=== PATIENT | male | born 1980 | race Caucasian/White ===

== ENCOUNTER 2021-02-12 10:40 | Inpatient (IN) | payer OTHER ==
[2021-02-12 11:24] VITALS: BMI 27.8
[2021-02-12] MEDS ORDERED: MAGNESIUM HYDROX 2400MG/30ML ORAL SUSPENSION 30 ML CUP PO PRN (16:03)
[2021-02-12] MEDS ORDERED: MAGNESIUM CITRATE 300 ML BOTTLE PO PRN (16:03)
[2021-02-12] MEDS ORDERED: BISMUTH SUBSALICYLATE 524 MG/30 ML PO PRN (16:03)
[2021-02-12] MEDS ORDERED: MAG HYDROX/AL HYDROX/SIMETH 30 ML UNIT-DOSE CUP PO PRN (16:03)
[2021-02-12] MEDS ORDERED: METHOCARBAMOL 500 MG TABLET PO PRN (16:03)
[2021-02-12] MEDS ORDERED: ACETAMINOPHEN 325 MG TABLET (FP) PO PRN (16:03)
[2021-02-12] MEDS ORDERED: ONDANSETRON *ODT* 4 MG TABLET SL PRN (16:03)
[2021-02-12] MEDS ORDERED: MENTHOL/PHENOL 1 EACH UD MM PRN (16:03)
[2021-02-12] MEDS ORDERED: IBUPROFEN 400 MG TABLET (FP) PO PRN (16:03)
[2021-02-12] MEDS: diazePAM 5 MG TABLET PO SCH ×2 (17:57→23:06)
[2021-02-12] MEDS: NICOTINE POLACRILEX 2 MG GUM BUC PRN (17:57)
[2021-02-12] MEDS: hydrOXYzine PAMOATE 25 MG CAPSULE (FP) PO SCH ×2 (17:57→23:12)
[2021-02-12] MEDS: NICOTINE 21 MG/24 HOURS TOPICAL PATCH TD SCH (17:57)
[2021-02-12] MEDS: diazePAM 5 MG TABLET PO PRN (19:10)
[2021-02-12] MEDS: MELATONIN 5 MG TABLETS PO SCH (23:06)
[2021-02-12] MEDS: THIAMINE HCL 100 MG TABLET (FP) PO SCH (23:12)
[2021-02-13] MEDS: hydrOXYzine PAMOATE 25 MG CAPSULE (FP) PO SCH (07:00)
[2021-02-13] MEDS: NICOTINE POLACRILEX 2 MG GUM BUC PRN ×4 (07:00→23:22)
[2021-02-13] MEDS: diazePAM 5 MG TABLET PO SCH ×4 (07:02→23:24)
[2021-02-13] MEDS ORDERED: hydrOXYzine PAMOATE 25 MG CAPSULE (FP) PO PRN (08:43)
[2021-02-13] MEDS ORDERED: NICOTINE 21 MG/24 HOURS TOPICAL PATCH TD SCH (10:00)
[2021-02-13] MEDS: NICOTINE 21 MG/24 HOURS TOPICAL PATCH TD SCH (10:01)
[2021-02-13] MEDS: methaDONE HCL 40 MG DISPERSABLE TABLET PO SCH (10:01)
[2021-02-13] MEDS: PRENATAL VITAMINS W/ FOLIC ACID TABLET (FP) PO SCH (10:02)
[2021-02-13 11:13] LABS: HEMATOCRIT 39.7 % (35.4-49); HEMOGLOBIN 13.8 GM/dL (11.7-16.9); MCH 33.8 pg (25.7-33.7); MCHC 34.8 g/dl (32.0-35.9); PLATELET COUNT 222 10^3/uL (134-434); RBC 4.09 M/mm3 (4.00-5.60); RDW 13.6 % (11.9-15.9); WHITE BLOOD COUNT 7.9 K/mm3 (4.0-10.0)
[2021-02-13 11:17] LABS: ALBUMIN 3.5 g/dl (3.4-5.0); BLOOD UREA NITROGEN 8.2 mg/dL (7-18); CALCIUM 8.7 mg/dL (8.5-10.1)
[2021-02-13 11:21] LABS: CREATININE 0.8 mg/dL (0.55-1.3)
[2021-02-13 11:22] LABS: BILIRUBIN,TOTAL 0.8 mg/dL (0.2-1); TOT PROT 6.3 g/dl (6.4-8.2)
[2021-02-13] MEDS ORDERED: POTASSIUM CHLORIDE TABS 20 MEQ TABLET.ER (FP) PO ONE (12:06)
[2021-02-13] MEDS: diazePAM 5 MG TABLET PO PRN ×2 (12:31→19:39)
[2021-02-13] MEDS: THIAMINE HCL 100 MG TABLET (FP) PO SCH (23:23)
[2021-02-13] MEDS: MELATONIN 5 MG TABLETS PO SCH (23:28)
[2021-02-14] MEDS: diazePAM 5 MG TABLET PO PRN ×4 (01:54→18:02)
[2021-02-14] MEDS: diazePAM 5 MG TABLET PO SCH ×3 (05:20→23:23)
[2021-02-14] MEDS: methaDONE HCL 40 MG DISPERSABLE TABLET PO SCH (05:20)
[2021-02-14] MEDS: ACETAMINOPHEN 325 MG TABLET (FP) PO PRN ×2 (06:06→17:58)
[2021-02-14] MEDS: PRENATAL VITAMINS W/ FOLIC ACID TABLET (FP) PO SCH (10:16)
[2021-02-14] MEDS: NICOTINE 21 MG/24 HOURS TOPICAL PATCH TD SCH (10:16)
[2021-02-14] MEDS: NICOTINE POLACRILEX 2 MG GUM BUC PRN ×2 (10:17→14:25)
[2021-02-14] MEDS: THIAMINE HCL 100 MG TABLET (FP) PO SCH (21:44)
[2021-02-14] MEDS: MELATONIN 5 MG TABLETS PO SCH (21:45)
[2021-02-15] MEDS: diazePAM 5 MG TABLET PO PRN ×3 (00:46→15:01)
[2021-02-15] MEDS: NICOTINE POLACRILEX 2 MG GUM BUC PRN ×2 (00:53→10:59)
[2021-02-15] MEDS: methaDONE HCL 40 MG DISPERSABLE TABLET PO SCH (05:47)
[2021-02-15] MEDS ORDERED: diazePAM 5 MG TABLET PO SCH (06:00)
[2021-02-15] MEDS: PRENATAL VITAMINS W/ FOLIC ACID TABLET (FP) PO SCH (10:25)
[2021-02-15] MEDS: NICOTINE 21 MG/24 HOURS TOPICAL PATCH TD SCH (10:25)
[2021-02-15 18:00] VITALS: BP 119/88; PULSE 134; TEMP 96.9
[2021-02-16] MEDS ORDERED: diazePAM 5 MG TABLET PO ONE (06:00)
== END 2021-02-15 17:02 | disposition home or self-care (01) | DRG 773 ==
LOC: YASAS 10:40 → Y3N 16:58
PROVIDERS: ADMIT Allergy & Immunology; ATTEND Allergy & Immunology
PROC: HZ2ZZZZ Detoxification Services for Substance Abuse Treatment (ICD-10-PCS; principal; 2021-02-12)
DX: F10.230 Alcohol dependence with withdrawal, uncomplicated (principal); F11.20 Opioid dependence, uncomplicated; F13.20 Sedative, hypnotic or anxiolytic dependence, uncomplicated; F14.20 Cocaine dependence, uncomplicated; F17.210 Nicotine dependence, cigarettes, uncomplicated; Z87.828 Personal history of other (healed) physical injury and trauma; Z91.013 Allergy to seafood; Z56.0 Unemployment, unspecified
CPT/HCPCS: 36415; 80053; 84132; 85027; 86780; C9803; U0003; U0005

== ENCOUNTER 2021-05-05 17:08 | Inpatient (IN) | payer OTHER ==
[2021-05-05] MEDS ORDERED: MAGNESIUM CITRATE 300 ML BOTTLE PO PRN (21:12)
[2021-05-05] MEDS ORDERED: ACETAMINOPHEN 325 MG TABLET (FP) PO PRN ×2 (21:12)
[2021-05-05] MEDS ORDERED: ONDANSETRON *ODT* 4 MG TABLET SL PRN (21:12)
[2021-05-05] MEDS ORDERED: IBUPROFEN 400 MG TABLET (FP) PO PRN (21:12)
[2021-05-05] MEDS ORDERED: MAGNESIUM HYDROX 2400MG/30ML ORAL SUSPENSION 30 ML CUP PO PRN (21:12)
[2021-05-05] MEDS ORDERED: MAG HYDROX/AL HYDROX/SIMETH 30 ML UNIT-DOSE CUP PO PRN (21:12)
[2021-05-05] MEDS ORDERED: BISMUTH SUBSALICYLATE 524 MG/30 ML PO PRN (21:12)
[2021-05-05] MEDS ORDERED: MENTHOL/PHENOL 1 EACH UD MM PRN (21:12)
[2021-05-05 22:39] VITALS: BMI 27.1
[2021-05-05] MEDS ORDERED: diazePAM 5 MG TABLET ONE (23:01)
[2021-05-05] MEDS ORDERED: METHOCARBAMOL 500 MG TABLET ONE (23:03)
[2021-05-05] MEDS: diazePAM 5 MG TABLET PO SCH (23:04)
[2021-05-05] MEDS: THIAMINE HCL 100 MG TABLET (FP) PO SCH (23:04)
[2021-05-05] MEDS: MELATONIN 5 MG TABLETS PO SCH (23:04)
[2021-05-05] MEDS: METHOCARBAMOL 500 MG TABLET PO PRN (23:06)
[2021-05-06] MEDS: diazePAM 5 MG TABLET PO PRN ×3 (01:04→19:31)
[2021-05-06] MEDS: diazePAM 5 MG TABLET PO SCH ×4 (05:35→22:12)
[2021-05-06] MEDS ORDERED: CLINDAMYCIN HCL 300 MG CAPSULE PO SCH (10:00)
[2021-05-06] MEDS ORDERED: BACITRACIN/POLYMYXIN B SULFATE 15 GM TUBE TP SCH (10:00)
[2021-05-06] MEDS: NICOTINE 21 MG/24 HOURS TOPICAL PATCH TD SCH (10:34)
[2021-05-06] MEDS: METHOCARBAMOL 500 MG TABLET PO PRN (10:34)
[2021-05-06] MEDS: PRENATAL VITAMINS W/ FOLIC ACID TABLET (FP) PO SCH (10:34)
[2021-05-06] MEDS: NICOTINE POLACRILEX 2 MG GUM BUC PRN ×3 (10:37→22:12)
[2021-05-06] MEDS ORDERED: methaDONE HCL 10 MG TABLET PO SCH (12:00)
[2021-05-06 12:15] LABS: HEMATOCRIT 37.2 % (35.4-49); HEMOGLOBIN 12.8 GM/dL (11.7-16.9); MCH 32.5 pg (25.7-33.7); MCHC 34.4 g/dl (32.0-35.9); MEAN CELL VOLUME 94.4 fl (80-96); PLATELET COUNT 345 10^3/uL (134-434); RBC 3.94 M/mm3 (4.00-5.60); WHITE BLOOD COUNT 7.2 K/mm3 (4.0-10.0)
[2021-05-06] MEDS ORDERED: methaDONE 40 MG, methaDONE 10 MG PO ONE (12:15)
[2021-05-06] MEDS ORDERED: methaDONE HCL 10 MG TABLET ONE (12:19)
[2021-05-06] MEDS ORDERED: methaDONE HCL 40 MG DISPERSABLE TABLET ONE (12:20)
[2021-05-06 12:21] LABS: CALCIUM 8.3 mg/dL (8.5-10.1)
[2021-05-06 12:22] LABS: BLOOD UREA NITROGEN 12.5 mg/dL (7-18)
[2021-05-06 12:25] LABS: BILIRUBIN,TOTAL 0.2 mg/dL (0.2-1); CREATININE 0.9 mg/dL (0.55-1.3)
[2021-05-06 12:26] LABS: TOT PROT 6.2 g/dl (6.4-8.2)
[2021-05-06] MEDS: CLINDAMYCIN HCL 150 MG CAPSULE (FP) PO SCH ×2 (13:35→22:11)
[2021-05-06] MEDS: BACITRACIN/POLYMYXIN B SULFATE 15 GM TUBE TP SCH (13:59)
[2021-05-06] MEDS: THIAMINE HCL 100 MG TABLET (FP) PO SCH (22:11)
[2021-05-06] MEDS: MELATONIN 5 MG TABLETS PO SCH (22:12)
[2021-05-07] MEDS: BACITRACIN/POLYMYXIN B SULFATE 15 GM TUBE TP SCH ×3 (00:12→23:12)
[2021-05-07] MEDS ORDERED: methaDONE HCL 10 MG TABLET ONE (04:37)
[2021-05-07] MEDS ORDERED: methaDONE HCL 40 MG DISPERSABLE TABLET ONE (04:38)
[2021-05-07] MEDS: methaDONE 40 MG, methaDONE 10 MG PO SCH (05:33)
[2021-05-07] MEDS: diazePAM 5 MG TABLET PO SCH ×3 (05:33→22:07)
[2021-05-07] MEDS: CLINDAMYCIN HCL 150 MG CAPSULE (FP) PO SCH ×2 (09:07→22:07)
[2021-05-07] MEDS: PRENATAL VITAMINS W/ FOLIC ACID TABLET (FP) PO SCH (09:07)
[2021-05-07] MEDS: diazePAM 5 MG TABLET PO PRN ×2 (09:08→15:39)
[2021-05-07] MEDS: NICOTINE 21 MG/24 HOURS TOPICAL PATCH TD SCH (09:10)
[2021-05-07] MEDS: NICOTINE POLACRILEX 2 MG GUM BUC PRN ×3 (09:11→22:08)
[2021-05-07] MEDS: THIAMINE HCL 100 MG TABLET (FP) PO SCH (22:07)
[2021-05-07] MEDS: MELATONIN 5 MG TABLETS PO SCH (22:09)
[2021-05-08] MEDS: diazePAM 5 MG TABLET PO PRN ×3 (00:58→21:10)
[2021-05-08] MEDS ORDERED: methaDONE HCL 10 MG TABLET ONE (04:59)
[2021-05-08] MEDS ORDERED: methaDONE HCL 40 MG DISPERSABLE TABLET ONE (04:59)
[2021-05-08] MEDS: methaDONE 40 MG, methaDONE 10 MG PO SCH (06:10)
[2021-05-08] MEDS: diazePAM 5 MG TABLET PO SCH ×2 (06:10→17:00)
[2021-05-08] MEDS: NICOTINE POLACRILEX 2 MG GUM BUC PRN ×4 (06:12→21:18)
[2021-05-08] MEDS: CLINDAMYCIN HCL 150 MG CAPSULE (FP) PO SCH ×2 (10:20→21:17)
[2021-05-08] MEDS: NICOTINE 21 MG/24 HOURS TOPICAL PATCH TD SCH (10:20)
[2021-05-08] MEDS: PRENATAL VITAMINS W/ FOLIC ACID TABLET (FP) PO SCH (10:20)
[2021-05-08] MEDS ORDERED: JANSSEN COVID-19 VAC,AD26/PF 0.5 ML IM ONE (12:00)
[2021-05-08] MEDS: BACITRACIN/POLYMYXIN B SULFATE 15 GM TUBE TP SCH ×2 (12:19→21:12)
[2021-05-08] MEDS: THIAMINE HCL 100 MG TABLET (FP) PO SCH (21:17)
[2021-05-08] MEDS: MELATONIN 5 MG TABLETS PO SCH (21:20)
[2021-05-09] MEDS ORDERED: methaDONE HCL 10 MG TABLET ONE (04:05)
[2021-05-09] MEDS ORDERED: methaDONE HCL 40 MG DISPERSABLE TABLET ONE (04:06)
[2021-05-09] MEDS: methaDONE 40 MG, methaDONE 10 MG PO SCH (05:35)
[2021-05-09] MEDS ORDERED: diazePAM 5 MG TABLET PO ONE (06:00)
[2021-05-09 09:07] VITALS: BP 103/65; PULSE 78; TEMP 97.6
== END 2021-05-09 10:25 | disposition home or self-care (01) | DRG 773 ==
LOC: YASAS 17:08 → Y6N 21:34
PROVIDERS: ADMIT Allergy & Immunology; ATTEND Allergy & Immunology
PROC: HZ2ZZZZ Detoxification Services for Substance Abuse Treatment (ICD-10-PCS; principal; 2021-05-05)
DX: F10.230 Alcohol dependence with withdrawal, uncomplicated (principal); F11.20 Opioid dependence, uncomplicated; F14.10 Cocaine abuse, uncomplicated; F17.213 Nicotine dependence, cigarettes, with withdrawal; R73.09 Other abnormal glucose; Z91.013 Allergy to seafood
CPT/HCPCS: 0031A; 36415; 80053; 82962; 85027; 86780; 91303; C9803; U0003; U0005

== ENCOUNTER 2021-05-26 16:58 | Inpatient (IN) | payer OTHER ==
[2021-05-26 19:14] VITALS: BMI 26.3
[2021-05-26] MEDS ORDERED: ONDANSETRON *ODT* 4 MG TABLET SL PRN (20:34)
[2021-05-26] MEDS ORDERED: MAG HYDROX/AL HYDROX/SIMETH 30 ML UNIT-DOSE CUP PO PRN (20:34)
[2021-05-26] MEDS ORDERED: MAGNESIUM CITRATE 300 ML BOTTLE PO PRN (20:34)
[2021-05-26] MEDS ORDERED: BISMUTH SUBSALICYLATE 524 MG/30 ML PO PRN (20:34)
[2021-05-26] MEDS ORDERED: hydrOXYzine PAMOATE 25 MG CAPSULE (FP) PO PRN (20:34)
[2021-05-26] MEDS ORDERED: ACETAMINOPHEN 325 MG TABLET (FP) PO PRN ×2 (20:34)
[2021-05-26] MEDS ORDERED: IBUPROFEN 400 MG TABLET (FP) PO PRN (20:34)
[2021-05-26] MEDS ORDERED: MENTHOL/PHENOL 1 EACH UD MM PRN (20:34)
[2021-05-26] MEDS ORDERED: MAGNESIUM HYDROX 2400MG/30ML ORAL SUSPENSION 30 ML CUP PO PRN (20:34)
[2021-05-26] MEDS: THIAMINE HCL 100 MG TABLET (FP) PO SCH (23:56)
[2021-05-26] MEDS: MELATONIN 5 MG TABLETS PO SCH (23:56)
[2021-05-27] MEDS: NICOTINE POLACRILEX 2 MG GUM BUC PRN ×2 (09:24→12:51)
[2021-05-27] MEDS ORDERED: methaDONE HCL 10 MG TABLET PO SCH (09:45)
[2021-05-27] MEDS ORDERED: hydrOXYzine PAMOATE 25 MG CAPSULE (FP) PO PRN (09:46)
[2021-05-27] MEDS ORDERED: methaDONE HCL 40 MG DISPERSABLE TABLET ONE (10:21)
[2021-05-27] MEDS: NICOTINE 21 MG/24 HOURS TOPICAL PATCH TD SCH ×2 (10:23→10:30)
[2021-05-27] MEDS: PRENATAL VITAMINS W/ FOLIC ACID TABLET (FP) PO SCH (10:23)
[2021-05-27] MEDS ORDERED: diazePAM 5 MG TABLET PO ONE (12:46)
[2021-05-27] MEDS: NICOTINE 10 MG CARTRIDGE (INHALER) IH PRN (17:27)
[2021-05-27] MEDS: diazePAM 5 MG TABLET PO SCH ×2 (17:54→22:49)
[2021-05-27] MEDS: diazePAM 5 MG TABLET PO PRN (19:59)
[2021-05-27] MEDS: MELATONIN 5 MG TABLETS PO SCH (22:49)
[2021-05-27] MEDS: THIAMINE HCL 100 MG TABLET (FP) PO SCH (22:49)
[2021-05-28] MEDS ORDERED: methaDONE HCL 40 MG DISPERSABLE TABLET ONE (04:16)
[2021-05-28] MEDS: diazePAM 5 MG TABLET PO SCH ×4 (05:27→22:30)
[2021-05-28] MEDS: diazePAM 5 MG TABLET PO PRN ×3 (08:35→20:45)
[2021-05-28] MEDS: NICOTINE 10 MG CARTRIDGE (INHALER) IH PRN ×3 (08:37→18:08)
[2021-05-28] MEDS: PRENATAL VITAMINS W/ FOLIC ACID TABLET (FP) PO SCH (10:23)
[2021-05-28] MEDS: NICOTINE 21 MG/24 HOURS TOPICAL PATCH TD SCH (10:24)
[2021-05-28] MEDS: THIAMINE HCL 100 MG TABLET (FP) PO SCH (22:30)
[2021-05-28] MEDS: MELATONIN 5 MG TABLETS PO SCH (22:30)
[2021-05-29] MEDS ORDERED: methaDONE HCL 40 MG DISPERSABLE TABLET ONE (04:07)
[2021-05-29] MEDS: diazePAM 5 MG TABLET PO SCH ×3 (05:17→21:42)
[2021-05-29] MEDS: NICOTINE 10 MG CARTRIDGE (INHALER) IH PRN ×4 (05:19→20:10)
[2021-05-29] MEDS: PRENATAL VITAMINS W/ FOLIC ACID TABLET (FP) PO SCH (10:34)
[2021-05-29] MEDS: NICOTINE 21 MG/24 HOURS TOPICAL PATCH TD SCH (10:34)
[2021-05-29] MEDS: diazePAM 5 MG TABLET PO PRN ×3 (10:36→20:11)
[2021-05-29 12:23] LABS: ALBUMIN 3.6 g/dl (3.4-5.0); CALCIUM 8.9 mg/dL (8.5-10.1)
[2021-05-29 12:26] LABS: CREATININE 0.7 mg/dL (0.55-1.3)
[2021-05-29 12:27] LABS: BILIRUBIN,TOTAL 0.7 mg/dL (0.2-1); TOT PROT 7.1 g/dl (6.4-8.2)
[2021-05-29 12:43] LABS: BASO % 0.6 % (0-2.0); EOS % 1.9 % (0-4.5); HEMATOCRIT 41.7 % (35.4-49); HEMOGLOBIN 14.1 GM/dL (11.7-16.9); LYMPH % 34.7 % (8-40); MCH 32.4 pg (25.7-33.7); MCHC 33.8 g/dl (32.0-35.9); MEAN CELL VOLUME 95.9 fl (80-96); MEAN PLT VOLUME 8.5 fl (7.5-11.1); MONO % 9.6 % (3.8-10.2); NEUT % 53.2 % (42.8-82.8); PLATELET COUNT 270 10^3/uL (134-434); RBC 4.35 M/mm3 (4.00-5.60); RDW 14.1 % (11.9-15.9); WHITE BLOOD COUNT 5.6 K/mm3 (4.0-10.0)
[2021-05-29] MEDS: METHOCARBAMOL 500 MG TABLET PO PRN (21:42)
[2021-05-29] MEDS: MELATONIN 5 MG TABLETS PO SCH (21:42)
[2021-05-29] MEDS: THIAMINE HCL 100 MG TABLET (FP) PO SCH (21:42)
[2021-05-30] MEDS ORDERED: methaDONE HCL 40 MG DISPERSABLE TABLET ONE (04:11)
[2021-05-30] MEDS: diazePAM 5 MG TABLET PO SCH ×2 (05:16→17:10)
[2021-05-30] MEDS: NICOTINE 21 MG/24 HOURS TOPICAL PATCH TD SCH (11:10)
[2021-05-30] MEDS: PRENATAL VITAMINS W/ FOLIC ACID TABLET (FP) PO SCH (11:11)
[2021-05-30] MEDS: diazePAM 5 MG TABLET PO PRN (11:12)
[2021-05-30] MEDS: NICOTINE 10 MG CARTRIDGE (INHALER) IH PRN ×3 (11:13→19:57)
[2021-05-30] MEDS: THIAMINE HCL 100 MG TABLET (FP) PO SCH (22:04)
[2021-05-30] MEDS: METHOCARBAMOL 500 MG TABLET PO PRN (22:04)
[2021-05-30] MEDS: MELATONIN 5 MG TABLETS PO SCH (22:04)
[2021-05-31] MEDS ORDERED: methaDONE HCL 40 MG DISPERSABLE TABLET ONE (04:08)
[2021-05-31] MEDS ORDERED: diazePAM 5 MG TABLET PO ONE (06:00)
[2021-05-31 06:17] VITALS: BP 103/57; PULSE 67; TEMP 97.2
== END 2021-05-31 08:51 | disposition other institution (70) | DRG 773 ==
LOC: YASAS 16:58 → Y3N 23:09
PROVIDERS: ADMIT Allergy & Immunology; ATTEND Allergy & Immunology
PROC: HZ2ZZZZ Detoxification Services for Substance Abuse Treatment (ICD-10-PCS; principal; 2021-05-26)
DX: F10.230 Alcohol dependence with withdrawal, uncomplicated (principal); F13.230 Sedative, hypnotic or anxiolytic dependence with withdrawal, uncomplicated; F11.20 Opioid dependence, uncomplicated; F14.20 Cocaine dependence, uncomplicated; F17.210 Nicotine dependence, cigarettes, uncomplicated; Z91.013 Allergy to seafood; Z56.0 Unemployment, unspecified; Z59.00 Homelessness unspecified
CPT/HCPCS: 36415; 80053; 85025; 86780; C9803; U0003; U0005

== ENCOUNTER 2022-03-06 14:52 | Inpatient (IN) | payer OTHER ==
[2022-03-06 16:40] VITALS: BMI 27.0
[2022-03-06] MEDS ORDERED: BENZOCAINE/MENTHOL (CHLORASEPTIC ) LOZENGE MM PRN (17:54)
[2022-03-06] MEDS ORDERED: ACETAMINOPHEN 325 MG TABLET (FP) PO PRN ×2 (17:54)
[2022-03-06] MEDS ORDERED: DICYCLOMINE HCL 10 MG CAPSULE PO PRN (17:54)
[2022-03-06] MEDS ORDERED: MAGNESIUM CITRATE 300 ML BOTTLE PO PRN (17:54)
[2022-03-06] MEDS ORDERED: IBUPROFEN 400 MG TABLET (FP) PO PRN (17:54)
[2022-03-06] MEDS ORDERED: MAGNESIUM HYDROX 2400MG/30ML ORAL SUSPENSION 30 ML CUP PO PRN (17:54)
[2022-03-06] MEDS ORDERED: ONDANSETRON *ODT* 4 MG TABLET SL PRN (17:54)
[2022-03-06] MEDS ORDERED: MAG HYDROX/AL HYDROX/SIMETH 30 ML UNIT-DOSE CUP PO PRN (17:54)
[2022-03-06] MEDS ORDERED: BISMUTH SUBSALICYLATE 524 MG/30 ML PO PRN (17:54)
[2022-03-06] MEDS ORDERED: NALOXONE HCL 0.4 MG/ML VIAL IM PRN (17:54)
[2022-03-06] MEDS ORDERED: METHOCARBAMOL 500 MG TABLET PO PRN (17:54)
[2022-03-06] MEDS ORDERED: IBUPROFEN 600 MG TABLET (FP) PO PRN (17:54)
[2022-03-06] MEDS ORDERED: LOPERAMIDE HCL 2 MG CAPSULE PO PRN (17:54)
[2022-03-06] MEDS: diazePAM 5 MG TABLET PO PRN (20:06)
[2022-03-06] MEDS: PRENATAL VITAMINS W/ FOLIC ACID TABLET (FP) PO SCH (20:09)
[2022-03-06] MEDS: NICOTINE 21 MG/24 HOURS TOPICAL PATCH TD SCH (20:09)
[2022-03-06] MEDS: hydrOXYzine PAMOATE 25 MG CAPSULE (FP) PO SCH ×2 (20:09→23:04)
[2022-03-06] MEDS: diazePAM 5 MG TABLET PO SCH ×2 (20:10→23:02)
[2022-03-06] MEDS: THIAMINE HCL 100 MG TABLET (FP) PO SCH (23:02)
[2022-03-06] MEDS: MELATONIN 5 MG TABLETS PO SCH (23:04)
[2022-03-07] MEDS: diazePAM 5 MG TABLET PO SCH ×4 (06:26→22:30)
[2022-03-07] MEDS: hydrOXYzine PAMOATE 25 MG CAPSULE (FP) PO SCH ×5 (06:26→22:30)
[2022-03-07] MEDS: diazePAM 5 MG TABLET PO PRN ×3 (09:09→20:32)
[2022-03-07] MEDS: NICOTINE 10 MG CARTRIDGE (INHALER) IH PRN ×3 (09:18→20:38)
[2022-03-07 10:33] LABS: CALCIUM 8.3 mg/dL (8.5-10.1); HEMATOCRIT 37.7 % (35.4-49); HEMOGLOBIN 12.8 GM/dL (11.7-16.9); MCH 31.8 pg (25.7-33.7); MCHC 33.9 g/dl (32.0-35.9); MEAN CELL VOLUME 93.9 fl (80-96); MEAN PLT VOLUME 8.6 fl (7.5-11.1); PLATELET COUNT 304 10^3/uL (134-434); RBC 4.01 M/mm3 (4.00-5.60); RDW 14.1 % (11.9-15.9); WHITE BLOOD COUNT 9.5 K/mm3 (4.0-10.0)
[2022-03-07 10:34] LABS: BLOOD UREA NITROGEN 16.9 mg/dL (7-18)
[2022-03-07 10:37] LABS: CREATININE 0.7 mg/dL (0.55-1.3)
[2022-03-07 10:38] LABS: BILIRUBIN,TOTAL 0.2 mg/dL (0.2-1); TOT PROT 5.8 g/dl (6.4-8.2)
[2022-03-07] MEDS ORDERED: methaDONE HCL 10 MG TABLET PO ONE (10:40)
[2022-03-07] MEDS ORDERED: methaDONE 80 MG, methaDONE 20 MG PO ONE (10:45)
[2022-03-07] MEDS: NICOTINE 21 MG/24 HOURS TOPICAL PATCH TD SCH (11:23)
[2022-03-07] MEDS: PRENATAL VITAMINS W/ FOLIC ACID TABLET (FP) PO SCH (11:25)
[2022-03-07] MEDS ORDERED: NICOTINE POLACRILEX 4 MG GUM BUC PRN (12:43)
[2022-03-07] MEDS ORDERED: diazePAM 5 MG TABLET PO ONE (13:45)
[2022-03-07] MEDS: MELATONIN 5 MG TABLETS PO SCH (22:31)
[2022-03-07] MEDS: THIAMINE HCL 100 MG TABLET (FP) PO SCH (22:31)
[2022-03-08] MEDS: diazePAM 5 MG TABLET PO PRN ×4 (01:41→17:11)
[2022-03-08] MEDS: methaDONE 80 MG, methaDONE 20 MG PO SCH (05:53)
[2022-03-08] MEDS: diazePAM 5 MG TABLET PO SCH ×3 (05:53→21:10)
[2022-03-08] MEDS: hydrOXYzine PAMOATE 25 MG CAPSULE (FP) PO SCH ×5 (05:54→21:10)
[2022-03-08] MEDS ORDERED: methaDONE HCL 10 MG TABLET PO SCH (06:00)
[2022-03-08] MEDS: NICOTINE 10 MG CARTRIDGE (INHALER) IH PRN ×4 (08:58→21:11)
[2022-03-08] MEDS: PRENATAL VITAMINS W/ FOLIC ACID TABLET (FP) PO SCH (10:54)
[2022-03-08] MEDS: NICOTINE 21 MG/24 HOURS TOPICAL PATCH TD SCH (10:54)
[2022-03-08] MEDS: NEOMYCIN/POLYMYXIN/BACITRACIN (TRIPLE ANTIBIOTIC) 28 GM OINTMENT TP SCH ×2 (13:58→21:16)
[2022-03-08] MEDS: THIAMINE HCL 100 MG TABLET (FP) PO SCH (21:10)
[2022-03-08] MEDS: MELATONIN 5 MG TABLETS PO SCH (21:12)
[2022-03-09] MEDS: diazePAM 5 MG TABLET PO PRN ×4 (01:54→22:50)
[2022-03-09] MEDS: diazePAM 5 MG TABLET PO SCH ×2 (05:38→18:00)
[2022-03-09] MEDS: methaDONE 80 MG, methaDONE 20 MG PO SCH (05:38)
[2022-03-09] MEDS: hydrOXYzine PAMOATE 25 MG CAPSULE (FP) PO SCH ×5 (05:38→22:48)
[2022-03-09] MEDS: NICOTINE 10 MG CARTRIDGE (INHALER) IH PRN ×2 (08:45→12:50)
[2022-03-09] MEDS: NICOTINE 21 MG/24 HOURS TOPICAL PATCH TD SCH (10:47)
[2022-03-09] MEDS: NEOMYCIN/POLYMYXIN/BACITRACIN (TRIPLE ANTIBIOTIC) 28 GM OINTMENT TP SCH ×2 (10:48→22:48)
[2022-03-09] MEDS: PRENATAL VITAMINS W/ FOLIC ACID TABLET (FP) PO SCH (10:48)
[2022-03-09] MEDS: MELATONIN 5 MG TABLETS PO SCH (22:48)
[2022-03-09] MEDS: THIAMINE HCL 100 MG TABLET (FP) PO SCH (22:48)
[2022-03-10] MEDS ORDERED: diazePAM 5 MG TABLET PO ONE (06:00)
[2022-03-10] MEDS: methaDONE 80 MG, methaDONE 20 MG PO SCH (06:06)
[2022-03-10] MEDS: hydrOXYzine PAMOATE 25 MG CAPSULE (FP) PO SCH ×4 (06:07→18:45)
[2022-03-10] MEDS: NICOTINE 10 MG CARTRIDGE (INHALER) IH PRN ×4 (06:07→19:16)
[2022-03-10] MEDS: diazePAM 5 MG TABLET PO PRN ×4 (08:13→21:06)
[2022-03-10] MEDS: NEOMYCIN/POLYMYXIN/BACITRACIN (TRIPLE ANTIBIOTIC) 28 GM OINTMENT TP SCH (10:04)
[2022-03-10] MEDS: PRENATAL VITAMINS W/ FOLIC ACID TABLET (FP) PO SCH (10:04)
[2022-03-10] MEDS: NICOTINE 21 MG/24 HOURS TOPICAL PATCH TD SCH (10:04)
[2022-03-10 21:05] VITALS: RESP 18
[2022-03-11] MEDS: NEOMYCIN/POLYMYXIN/BACITRACIN (TRIPLE ANTIBIOTIC) 28 GM OINTMENT TP SCH ×2 (00:19→10:50)
[2022-03-11] MEDS: MELATONIN 5 MG TABLETS PO SCH (00:19)
[2022-03-11] MEDS: THIAMINE HCL 100 MG TABLET (FP) PO SCH (00:20)
[2022-03-11] MEDS: hydrOXYzine PAMOATE 25 MG CAPSULE (FP) PO SCH ×3 (00:20→10:50)
[2022-03-11] MEDS: diazePAM 5 MG TABLET PO PRN ×2 (01:42→08:02)
[2022-03-11] MEDS ORDERED: diazePAM 5 MG TABLET PO ONE (06:00)
[2022-03-11] MEDS: methaDONE 80 MG, methaDONE 20 MG PO SCH (06:10)
[2022-03-11] MEDS: NICOTINE 10 MG CARTRIDGE (INHALER) IH PRN (06:12)
[2022-03-11 09:31] VITALS: BP 108/60; PULSE 91; TEMP 97.8
[2022-03-11] MEDS: PRENATAL VITAMINS W/ FOLIC ACID TABLET (FP) PO SCH (10:50)
[2022-03-11] MEDS: NICOTINE 21 MG/24 HOURS TOPICAL PATCH TD SCH (10:50)
== END 2022-03-11 09:26 | disposition other institution (70) | DRG 773 ==
LOC: YASAS 14:52 → Y6N 19:20
PROVIDERS: ADMIT Allergy & Immunology; ATTEND Surgery
PROC: HZ2ZZZZ Detoxification Services for Substance Abuse Treatment (ICD-10-PCS; principal; 2022-03-06)
DX: F10.230 Alcohol dependence with withdrawal, uncomplicated (principal); F13.230 Sedative, hypnotic or anxiolytic dependence with withdrawal, uncomplicated; F11.20 Opioid dependence, uncomplicated; F14.20 Cocaine dependence, uncomplicated; F17.210 Nicotine dependence, cigarettes, uncomplicated; S99.921A Unspecified injury of right foot, initial encounter; W22.03XA Walked into furniture, initial encounter; Y92.230 Patient room in hospital as the place of occurrence of the external cause; Z91.013 Allergy to seafood
CPT/HCPCS: 36415; 80053; 85027; 86780; 87811; C9803-CS; U0003; U0005

== ENCOUNTER 2022-04-07 16:33 | Inpatient (IN) | payer OTHER ==
[2022-04-07 17:16] VITALS: BMI 24.4
[2022-04-07] MEDS ORDERED: BISMUTH SUBSALICYLATE 524 MG/30 ML PO PRN (18:07)
[2022-04-07] MEDS ORDERED: DICYCLOMINE HCL 10 MG CAPSULE PO PRN (18:07)
[2022-04-07] MEDS ORDERED: IBUPROFEN 600 MG TABLET (FP) PO PRN (18:07)
[2022-04-07] MEDS ORDERED: NALOXONE HCL (KLOXXADO) 8 MG SPRAY NS PRN (18:07)
[2022-04-07] MEDS ORDERED: ACETAMINOPHEN 325 MG TABLET (FP) PO PRN ×2 (18:07)
[2022-04-07] MEDS ORDERED: METHOCARBAMOL 500 MG TABLET PO PRN (18:07)
[2022-04-07] MEDS ORDERED: BENZOCAINE/MENTHOL (CHLORASEPTIC ) LOZENGE MM PRN (18:07)
[2022-04-07] MEDS ORDERED: IBUPROFEN 400 MG TABLET (FP) PO PRN (18:07)
[2022-04-07] MEDS ORDERED: MAGNESIUM HYDROX 2400MG/30ML ORAL SUSPENSION 30 ML CUP PO PRN (18:07)
[2022-04-07] MEDS ORDERED: ONDANSETRON *ODT* 4 MG TABLET SL PRN (18:07)
[2022-04-07] MEDS ORDERED: MAG HYDROX/AL HYDROX/SIMETH 30 ML UNIT-DOSE CUP PO PRN (18:07)
[2022-04-07] MEDS ORDERED: MAGNESIUM CITRATE 300 ML BOTTLE PO PRN (18:07)
[2022-04-07] MEDS ORDERED: LOPERAMIDE HCL 2 MG CAPSULE PO PRN (18:07)
[2022-04-07] MEDS: diazePAM 5 MG TABLET PO PRN (18:52)
[2022-04-07] MEDS: NICOTINE 10 MG CARTRIDGE (INHALER) IH PRN (19:44)
[2022-04-07] MEDS: diazePAM 5 MG TABLET PO SCH (23:15)
[2022-04-07] MEDS: hydrOXYzine PAMOATE 25 MG CAPSULE (FP) PO SCH (23:41)
[2022-04-07] MEDS: MELATONIN 5 MG TABLETS PO SCH (23:41)
[2022-04-07] MEDS: THIAMINE HCL 100 MG TABLET (FP) PO SCH (23:41)
[2022-04-08] MEDS: hydrOXYzine PAMOATE 25 MG CAPSULE (FP) PO SCH ×5 (05:57→22:12)
[2022-04-08] MEDS: diazePAM 5 MG TABLET PO SCH ×4 (05:58→22:13)
[2022-04-08] MEDS: diazePAM 5 MG TABLET PO PRN ×3 (08:23→20:40)
[2022-04-08] MEDS ORDERED: methaDONE HCL 10 MG TABLET PO ONE (09:48)
[2022-04-08] MEDS: PRENATAL VITAMINS W/ FOLIC ACID TABLET (FP) PO SCH (10:37)
[2022-04-08] MEDS: NICOTINE 10 MG CARTRIDGE (INHALER) IH PRN ×2 (10:38→22:13)
[2022-04-08] MEDS: THIAMINE HCL 100 MG TABLET (FP) PO SCH (23:24)
[2022-04-08] MEDS: MELATONIN 5 MG TABLETS PO SCH (23:24)
[2022-04-09] MEDS: diazePAM 5 MG TABLET PO PRN ×5 (03:43→20:31)
[2022-04-09] MEDS: diazePAM 5 MG TABLET PO SCH ×3 (05:28→23:22)
[2022-04-09] MEDS: hydrOXYzine PAMOATE 25 MG CAPSULE (FP) PO SCH ×5 (05:28→22:12)
[2022-04-09] MEDS: NICOTINE 10 MG CARTRIDGE (INHALER) IH PRN ×4 (07:47→20:27)
[2022-04-09] MEDS ORDERED: methaDONE HCL 10 MG TABLET PO ONE (08:41)
[2022-04-09] MEDS ORDERED: methaDONE 80 MG, methaDONE 20 MG PO ONE (08:51)
[2022-04-09] MEDS: PRENATAL VITAMINS W/ FOLIC ACID TABLET (FP) PO SCH (09:06)
[2022-04-09 11:17] LABS: HEMATOCRIT 43.8 % (35.4-49); HEMOGLOBIN 14.2 GM/dL (11.7-16.9); MCH 30.7 pg (25.7-33.7); MCHC 32.4 g/dl (32.0-35.9); MEAN CELL VOLUME 94.8 fl (80-96); MEAN PLT VOLUME 8.9 fl (7.5-11.1); PLATELET COUNT 290 10^3/uL (134-434); RBC 4.62 M/mm3 (4.00-5.60); RDW 14.7 % (11.9-15.9); WHITE BLOOD COUNT 6.7 K/mm3 (4.0-10.0)
[2022-04-09 11:19] LABS: BLOOD UREA NITROGEN 12.4 mg/dL (7-18); CALCIUM 9.5 mg/dL (8.5-10.1)
[2022-04-09 11:20] LABS: ALBUMIN 4.1 g/dl (3.4-5.0)
[2022-04-09 11:23] LABS: CREATININE 0.8 mg/dL (0.55-1.3)
[2022-04-09 11:24] LABS: BILIRUBIN,TOTAL 0.4 mg/dL (0.2-1); TOT PROT 7.1 g/dl (6.4-8.2)
[2022-04-09] MEDS: THIAMINE HCL 100 MG TABLET (FP) PO SCH (22:12)
[2022-04-09] MEDS: MELATONIN 5 MG TABLETS PO SCH (22:12)
[2022-04-10] MEDS: diazePAM 5 MG TABLET PO PRN ×4 (02:03→16:51)
[2022-04-10] MEDS: methaDONE 80 MG, methaDONE 20 MG PO SCH (05:36)
[2022-04-10] MEDS: hydrOXYzine PAMOATE 25 MG CAPSULE (FP) PO SCH ×5 (05:36→22:27)
[2022-04-10] MEDS: diazePAM 5 MG TABLET PO SCH ×2 (05:36→18:31)
[2022-04-10] MEDS ORDERED: methaDONE HCL 10 MG TABLET PO SCH (06:00)
[2022-04-10] MEDS: NICOTINE 10 MG CARTRIDGE (INHALER) IH PRN ×3 (09:00→16:54)
[2022-04-10] MEDS: PRENATAL VITAMINS W/ FOLIC ACID TABLET (FP) PO SCH (10:17)
[2022-04-10] MEDS ORDERED: TRIMETHOBENZAMIDE HCL 200MG/2ML INJ IM PRN (16:18)
[2022-04-10 17:13] VITALS: RESP 18
[2022-04-10] MEDS: MELATONIN 5 MG TABLETS PO SCH (22:27)
[2022-04-10] MEDS: THIAMINE HCL 100 MG TABLET (FP) PO SCH (22:27)
[2022-04-11] MEDS: methaDONE 80 MG, methaDONE 20 MG PO SCH (05:41)
[2022-04-11] MEDS: NICOTINE 10 MG CARTRIDGE (INHALER) IH PRN (05:41)
[2022-04-11] MEDS: hydrOXYzine PAMOATE 25 MG CAPSULE (FP) PO SCH ×2 (05:41→10:38)
[2022-04-11] MEDS ORDERED: diazePAM 5 MG TABLET PO ONE (06:00)
[2022-04-11 09:58] VITALS: BP 119/84; PULSE 82; TEMP 97.6
[2022-04-11] MEDS: PRENATAL VITAMINS W/ FOLIC ACID TABLET (FP) PO SCH (10:37)
== END 2022-04-11 09:49 | disposition home or self-care (01) | DRG 773 ==
LOC: YASAS 16:33 → Y6N 18:09
PROVIDERS: ADMIT Allergy & Immunology; ATTEND Surgery
PROC: HZ2ZZZZ Detoxification Services for Substance Abuse Treatment (ICD-10-PCS; principal; 2022-04-09)
DX: F10.230 Alcohol dependence with withdrawal, uncomplicated (principal); F13.230 Sedative, hypnotic or anxiolytic dependence with withdrawal, uncomplicated; F11.20 Opioid dependence, uncomplicated; F14.20 Cocaine dependence, uncomplicated; F17.210 Nicotine dependence, cigarettes, uncomplicated
CPT/HCPCS: 36415; 80053; 85027; 86780; C9803-CS; U0003; U0005

== ENCOUNTER 2022-08-17 12:03 | Inpatient (IN) | payer OTHER ==
[2022-08-17 12:47] VITALS: BMI 28.3
[2022-08-17] MEDS ORDERED: IBUPROFEN 600 MG TABLET (FP) PO PRN (13:06)
[2022-08-17] MEDS ORDERED: BISMUTH SUBSALICYLATE 524 MG/30 ML PO PRN (13:06)
[2022-08-17] MEDS ORDERED: DICYCLOMINE HCL 10 MG CAPSULE PO PRN (13:06)
[2022-08-17] MEDS ORDERED: NALOXONE HCL (KLOXXADO) 8 MG SPRAY NS PRN (13:06)
[2022-08-17] MEDS ORDERED: MAGNESIUM HYDROX 2400MG/30ML ORAL SUSPENSION 30 ML CUP PO PRN (13:06)
[2022-08-17] MEDS ORDERED: ONDANSETRON *ODT* 4 MG TABLET SL PRN (13:06)
[2022-08-17] MEDS ORDERED: BENZOCAINE/MENTHOL (CHLORASEPTIC ) LOZENGE MM PRN (13:06)
[2022-08-17] MEDS ORDERED: LOPERAMIDE HCL 2 MG CAPSULE PO PRN (13:06)
[2022-08-17] MEDS ORDERED: POLYETHYLENE GLYCOL (HEALTHYLAX) 3350 17 GM PACKET PO PRN (13:06)
[2022-08-17] MEDS ORDERED: MAG HYDROX/AL HYDROX/SIMETH 30 ML UNIT-DOSE CUP PO PRN (13:06)
[2022-08-17] MEDS ORDERED: IBUPROFEN 400 MG TABLET (FP) PO PRN (13:06)
[2022-08-17] MEDS ORDERED: ACETAMINOPHEN 325 MG TABLET (FP) PO PRN ×2 (13:06)
[2022-08-17] MEDS ORDERED: diazePAM 5 MG TABLET PO ONE (13:15)
[2022-08-17] MEDS: PRENATAL VITAMINS W/ FOLIC ACID TABLET (FP) PO SCH (13:31)
[2022-08-17] MEDS ORDERED: diazePAM 5 MG TABLET ONE (13:38)
[2022-08-17] MEDS: hydrOXYzine PAMOATE 25 MG CAPSULE (FP) PO PRN (14:45)
[2022-08-17] MEDS: NICOTINE 10 MG CARTRIDGE (INHALER) IH PRN ×3 (15:18→22:55)
[2022-08-17] MEDS: diazePAM 5 MG TABLET PO SCH ×2 (17:06→22:53)
[2022-08-17 17:33] LABS: HEMATOCRIT 38.1 % (35.4-49); HEMOGLOBIN 12.9 GM/dL (11.7-16.9); MCH 31.1 pg (25.7-33.7); MCHC 33.9 g/dl (32.0-35.9); MEAN CELL VOLUME 91.7 fl (80-96); MEAN PLT VOLUME 8.2 fl (7.5-11.1); PLATELET COUNT 326 10^3/uL (134-434); RBC 4.15 M/mm3 (4.00-5.60); RDW 13.5 % (11.9-15.9); WHITE BLOOD COUNT 10.3 K/mm3 (4.0-10.0)
[2022-08-17 17:40] LABS: CALCIUM 9.6 mg/dL (8.5-10.1)
[2022-08-17 17:41] LABS: ALBUMIN 4.8 g/dl (3.4-5.0); BLOOD UREA NITROGEN 14.5 mg/dL (7-18)
[2022-08-17 17:44] LABS: CREATININE 0.9 mg/dL (0.55-1.3)
[2022-08-17 17:45] LABS: BILIRUBIN,TOTAL 0.6 mg/dL (0.2-1); TOT PROT 8.3 g/dl (6.4-8.2)
[2022-08-17] MEDS: diazePAM 5 MG TABLET PO PRN (19:25)
[2022-08-17] MEDS: THIAMINE HCL 100 MG TABLET (FP) PO SCH (23:04)
[2022-08-17] MEDS: MELATONIN 5 MG TABLETS PO SCH (23:04)
[2022-08-18] MEDS: diazePAM 5 MG TABLET PO PRN ×4 (02:16→21:45)
[2022-08-18] MEDS: METHOCARBAMOL 500 MG TABLET PO PRN ×2 (02:16→20:04)
[2022-08-18] MEDS: diazePAM 5 MG TABLET PO SCH ×4 (06:02→23:04)
[2022-08-18] MEDS: NICOTINE 10 MG CARTRIDGE (INHALER) IH PRN ×3 (08:36→21:45)
[2022-08-18] MEDS ORDERED: methaDONE HCL 40 MG DISPERSABLE TABLET PO SCH (10:00)
[2022-08-18] MEDS: PRENATAL VITAMINS W/ FOLIC ACID TABLET (FP) PO SCH (10:38)
[2022-08-18] MEDS: THIAMINE HCL 100 MG TABLET (FP) PO SCH (21:44)
[2022-08-18] MEDS: MELATONIN 5 MG TABLETS PO SCH (23:04)
[2022-08-19] MEDS: diazePAM 5 MG TABLET PO PRN (01:47)
[2022-08-19] MEDS: diazePAM 5 MG TABLET PO SCH ×4 (05:31→22:26)
[2022-08-19] MEDS: NICOTINE 10 MG CARTRIDGE (INHALER) IH PRN ×3 (08:44→20:27)
[2022-08-19] MEDS ORDERED: diazePAM 5 MG TABLET PO PRN ×3 (09:37→16:20)
[2022-08-19] MEDS: PRENATAL VITAMINS W/ FOLIC ACID TABLET (FP) PO SCH (10:08)
[2022-08-19] MEDS: hydrOXYzine PAMOATE 25 MG CAPSULE (FP) PO PRN (10:09)
[2022-08-19] MEDS: THIAMINE HCL 100 MG TABLET (FP) PO SCH (22:26)
[2022-08-19] MEDS: MELATONIN 5 MG TABLETS PO SCH (22:26)
[2022-08-20] MEDS: diazePAM 5 MG TABLET PO SCH ×2 (05:35→17:55)
[2022-08-20] MEDS: diazePAM 5 MG TABLET PO PRN ×3 (07:51→23:01)
[2022-08-20] MEDS: PRENATAL VITAMINS W/ FOLIC ACID TABLET (FP) PO SCH (10:08)
[2022-08-20] MEDS: NICOTINE 10 MG CARTRIDGE (INHALER) IH PRN ×3 (10:09→21:04)
[2022-08-20] MEDS: METHOCARBAMOL 500 MG TABLET PO PRN (10:12)
[2022-08-20] MEDS: hydrOXYzine PAMOATE 25 MG CAPSULE (FP) PO PRN (14:08)
[2022-08-20] MEDS: THIAMINE HCL 100 MG TABLET (FP) PO SCH (22:06)
[2022-08-20] MEDS: MELATONIN 5 MG TABLETS PO SCH (22:06)
[2022-08-21] MEDS: NICOTINE 10 MG CARTRIDGE (INHALER) IH PRN ×2 (05:42→10:11)
[2022-08-21] MEDS ORDERED: diazePAM 5 MG TABLET PO ONE ×2 (06:00→10:00)
[2022-08-21 06:44] VITALS: RESP 18; TEMP 97.2
[2022-08-21 09:27] VITALS: BP 112/75; PULSE 112
[2022-08-21] MEDS: PRENATAL VITAMINS W/ FOLIC ACID TABLET (FP) PO SCH (10:09)
== END 2022-08-21 11:27 | disposition home or self-care (01) | DRG 773 ==
LOC: YASAS 12:03 → Y6N 14:10
PROVIDERS: ADMIT Allergy & Immunology; ATTEND Family Medicine
PROC: HZ2ZZZZ Detoxification Services for Substance Abuse Treatment (ICD-10-PCS; principal; 2022-08-17)
DX: F10.230 Alcohol dependence with withdrawal, uncomplicated (principal); F13.230 Sedative, hypnotic or anxiolytic dependence with withdrawal, uncomplicated; F11.20 Opioid dependence, uncomplicated; F14.20 Cocaine dependence, uncomplicated; F17.210 Nicotine dependence, cigarettes, uncomplicated; F41.9 Anxiety disorder, unspecified
CPT/HCPCS: 36415; 80053; 82140; 85027; 86780; 87811; C9803-CS; U0003; U0005